=== PATIENT | male | born 1990 | race Caucasian/White ===

== ENCOUNTER 2020-10-25 14:21 | Emergency (ER) | payer OTHER ==
[~2020-10-25] VITALS: Ht 170.1 cm; Wt 113.4 kg
[2020-10-25] MEDS ORDERED: NAPROSYN500 MG PO (16:08)
== END 2020-10-25 16:11 | disposition home or self-care (01) ==
LOC: ED 14:21
DX: M25.531 Pain in right wrist (principal); X50.3XXA Overexertion from repetitive movements, initial encounter; Y93.11 Activity, swimming; Y92.89 Other specified places as the place of occurrence of the external cause; Y99.8 Other external cause status

== ENCOUNTER → 2021-06-21 | Outpatient (CLI) | payer BC ==
[~2021-06-21] MED LIST: NAPROSYN500 MG PO
== END | disposition home or self-care (01) ==
LOC: RAD 10:50
PROVIDERS: ATTEND Family Medicine
DX: M25.531 Pain in right wrist (principal)

== ENCOUNTER → 2021-09-18 | Outpatient (CLI) | payer OTHER | END | disposition home or self-care (01) | LOC: RAD 15:24 | PROVIDERS: ATTEND Family Medicine | DX: M25.522 Pain in left elbow (principal) ==